=== PATIENT | male | born 1980 | race Caucasian/White ===

== ENCOUNTER 2018-12-02 03:28 | Observation (INO) ==
[2018-12-02] MEDS ORDERED: Morphine Inj 4 MG/ML Vial IV.PUSH PRN (05:50)
[2018-12-02] MEDS: Piperacil/Tazo 3.375 GM Premix 3.375 GM/50 ML PIGGYBACK IV.SIG SCH ×3 (09:15→20:43)
[2018-12-02] MEDS: Sod Chloride 0.9% Inj 1,000 ML IV.CONT SCH ×2 (09:16→18:24)
--- NOTE | 2018-12-02 10:21 | P.CONGS ---
[facility] Gen Surgery Consult Note Consult date: 12/02/18 Reason for consult: abdominal pain Narrative: CONSULTATION NOTE FOR SURGICAL ATTENDING, DR. RYAN SHELBY This is a 38 year old with a past medical history of hydronephrosis and kidney surgery who presented to the ED with complaints of abdominal pain. He reports that he has had vague abdominal pain for about 20 years. He reports in his early 20s, he had a gallbladder ultrasound which he reports only stated gallstones. He has not had any further workup. He reports that for years he would have mild abdominal pain after eating fatty foods but now has RUQ pain with any foods. A CT abdomen/pelvis was obtained which shows findings consistent with acute cholecystis. He does have a mildly elevated WBC. His liver enzymes are normal. A General Surgery consultation has been requested. Review of Systems All other systems reviewed negative except as stated in [facility] - History History Provided By: Patient - Medical History Medical History: Medical History (Last Reviewed 12/02/18 @ 18:49 by Ryan Shelby MD) Hydronephrosis Other specified diseases of appendix Patient denies medical problems - Surgical History Surgical History: Surgical History (Last Reviewed 12/02/18 @ 18:49 by Ryan Shelby MD) History of kidney surgery - Family History Family History: Family History (Last Reviewed 12/02/18 @ 14:07 by Sheyla Smith MD) Other Diabetes Heart problem Prostate CA - Social History I have reviewed the patient's Social History: Yes - Tobacco History Second Hand Smoke Exposure: No Smoking Status: Former smoker - Alcohol History How Often Do You Have a Drink Containing Alcohol: 2 to 4 times a month - Substance Use History Substance History: Active Abuse - Substance Use Type Marijuana Status: Active Route Used: Inhalation Reason for Use: Calm Down, Feels Good - Immunization History Tetanus Immunization Year if Known: 2015 Medications and Allergies Allergies Allergy/AdvReac Type Severity Reaction Status Date / Time meperidine [From Demerol] Allergy Anaphylaxis Verified 12/02/18 03:48 tramadol AdvReac Sedation Verified 12/02/18 03:48 Home Medications Medication Instructions Recorded Confirmed Type No Known Home Medications 12/02/18 12/02/18 History Active Medications: Active Medications Piperacillin/Tazobactam/Dextrose (Zosyn 3.375 Gm Premix) 3.375 gm in 50 mls @ 100 mls/hr IV.SIG Q6H [facility] Last Infusion: 12/02/18 09:45 Dose: Infused Sodium Chloride (Ns Inj) 1,000 mls @ 100 mls/hr IV.CONT .Q10H [facility] Last Admin: 12/02/18 09:16 Dose: 100 mls/hr Morphine Sulfate (Morphine Inj) 4 mg IV.PUSH Q4H PRN PRN Reason: pain 1 to 10 Ondansetron HCl (Zofran Inj) 4 mg IV.PUSH Q6H PRN PRN Reason: NAUSEA OR VOMITING Sodium Chloride (Ns Flush) 2 ml IV.FLUSH BID [facility] Last Admin: 12/02/18 09:12 Dose: 2 ml Sodium Chloride (Ns Flush) 2 ml IV.FLUSH PRN PRN PRN Reason: FLUSH AFTER USING IV ACCESS Exam Vital signs: Vital Signs 12/02/18 08:00 Temperature 98.4 F Pulse Rate 53 L Respiratory Rate 16 Blood Pressure 95/61 L Pulse Oximetry 99 Intake & Output 12/01/18 12/02/18 12/02/18 18:59 06:59 18:59 Intake Total 50 / 50 Balance 50 / 50 Intake: IV 50 / 50 Zosyn 3.375 GM Premix 3.375 gm 50 / 50 In 50 ml @ 100 mls/hr IV.SIG Q6H [facility] Rx#:[id number] Narrative: GENERAL: 38 year old male resting in bed in no acute distress. SKIN: Warm and dry. HEAD: Atraumatic. Normocephalic. EYES: Pupils equal and round. No scleral icterus. No injection or drainage. ENT: No nasal bleeding or discharge. Mucous membranes pink and moist. NECK: Trachea midline. CARDIOVASCULAR: Regular rate and rhythm. RESPIRATORY: No accessory muscle use. Clear to auscultation. Breath sounds equal bilaterally. GASTROINTESTINAL: Abdomen soft, flat non distended abdomen. Tender in RUQ with palpation. Large well healed RIGHT flank scar. MUSCULOSKELETAL: Extremities without clubbing, cyanosis, or edema. No obvious deformities. NEUROLOGICAL: Awake and alert. No obvious cranial nerve deficits. Motor grossly within normal limits. Five out of 5 muscle strength in the arms and legs. Normal speech. PSYCHIATRIC: Appropriate mood and affect; insight and judgment normal. Results - Imaging Imaging: CONCLUSION: 1. Findings consistent with acute cholecystitis 2. Left renal mass will need to be followed. Pre and postcontrast renal MRI suggested on an elective basis CT scan - abdomen: report reviewed, image reviewed CT scan - pelvis: report reviewed, image reviewed Assessment and Plan - Assessment (1) Left renal mass Code(s): N28.89 - Other specified disorders of kidney and ureter Status: Acute (2) Epigastric abdominal pain Code(s): R10.13 - Epigastric pain Status: Acute - Plan 38 year old male with RUQ abdominal pain; pain after eating fatty foods -Will get GI consultation-- no clear picture for acute cholecystitis with such a long history of pain May have gastritis causing significant symptoms -NPO -IVF -Will follow up after GI consultation -Thank you for this consult; We will continue to follow After GI evaluation and possible endoscopy plan outpatient cholecystectomy depending on endoscopy results Discussed Condition With: Dr. Heron Hogue - Attending Attestation CONSULTATION NOTE FOR SURGICAL ATTENDING, DR. RYAN SHELBY Patient seen at the bedside Patient does not have classic symptomatology consistent with acute cholecystitis as suggested on the CT report His symptomatology is been going on for many many years. Will get gastroenterology to evaluate His renal mass needs to be followed as an outpatient by his primary care physician I agree with above assessment and plan. The exam, history, and the medical decision-making described in the above note were completed with the assistance of the mid-level provider. I reviewed and agree with the findings presented. I attest that I had a [id number] encounter with the patient on the same day, and personally performed and documented my assessment and findings in the medical record. The following services were provided during this hospital visit: Chart data review, vital sign assessments/reviewing monitor data Review of consultations notes if present. Medication orders/review and/or management Ordering and/or reviewing lab tests Ordering and/or interpreting/reviewing x-rays and/or diagnostic studies Care of the patient and discussion of the patient with the care team Documentation time To help prompt me to consider important information that might be impacting today's encounter and assessment, Information from prior notes written by myself or my colleagues may have been "brought forward/copy and pasted" into today's note.
[2018-12-02] MEDS ORDERED: Bupivacaine/Epinephrine PF Inj 0.5% 30 ML Vial ONE (12:12)
[2018-12-02] MEDS ORDERED: Sodium Chlor 0.9% Inj 500 ML IV.SIG SCH (13:30)
[2018-12-02] MEDS ORDERED: Metoprolol Tartrate 25 MG Tablet PO ONE (13:30)
[2018-12-02] MEDS ORDERED: Chlorhexidine Gluconate 2% 1 Pack (2 Cloths) TOPICAL ONE (14:00)
--- NOTE | 2018-12-02 14:00 | P.CONGI ---
History of Present Illness Consult date: 12/02/18 Consult reason: Abdominal pain Increased pain after meals Chief complaint: Acute Cholecystitis History of Present Illness: Patient is a pleasant 38-year-old male with past medical history significant for hydronephrosis and right-sided kidney surgery. Patient denies any additional surgical history or medical problems. Patient presented to [facility] emergency room with complaints of epigastric abdominal pain. He reports that this pain is sometimes sharp in nature as well as dull in nature. He rates his pain at a 10 out of 10 at this time. Patient reports pain radiates from epigastrium to right upper quadrant. States pain has been intermittent over the last 20 years, mostly occurring after eating fatty foods with mayonnaise or cheese. Over the last year or 2, patient states the pain has become more frequent regardless of meal type. Patient denies any past history of having had an EGD or colonoscopy. Patient does endorse occasional heartburn for which he no longer takes antacids due to the ineffectiveness. Patient states most common trigger for symptoms tomato based products. Patient denies any difficulty swallowing, odynophagia or unintentional weight loss. He does endorse that discomfort is usually relieved by "belching". Patient denies use of tobacco products but does endorse marijuana use daily. States he drinks 4 beers/alcoholic drinks a week. Patient denies any present use of NSAIDs. States that he stopped taking naproxen 1-2 years ago for chronic lower back pain. Patient does endorse having daily bowel movements without diarrhea or constipation or any noted bleeding. CT abdomen and pelvis reveal left renal mass as well as findings suggestive of acute cholecystitis. Patient has been evaluated by the general surgical service and our service has been asked to evaluate patient further for abdominal pain. Review of Systems All other systems reviewed negative except as stated in [facility] - History History Provided By: Patient - Medical History Medical History: Medical History (Last Reviewed 12/02/18 @ 14:07 by Sheyla Smith MD) Hydronephrosis Other specified diseases of appendix Patient denies medical problems - Surgical History Surgical History: Surgical History (Last Reviewed 12/02/18 @ 14:07 by Sheyla Smith MD) History of kidney surgery - Family History Family History: Family History (Last Reviewed 12/02/18 @ 14:07 by Sheyla Smith MD) Other Diabetes Heart problem Prostate CA - Tobacco History Second Hand Smoke Exposure: No Smoking Status: Former smoker - Alcohol History How Often Do You Have a Drink Containing Alcohol: 2 to 4 times a month - Substance Use History Substance History: Active Abuse - Substance Use Type Marijuana Status: Active Route Used: Inhalation Reason for Use: Calm Down, Feels Good - Travel History Recent Travel in the [place] Within the Last 8 Weeks: No Recent Travel Out of the Country Within the Last 8 Weeks: No - Immunization History Tetanus Immunization Year if Known: 2015 Medications and Allergies Active Medications: Active Medications Chlorhexidine Gluconate (Chlorhexidine 2% Cloth) 3 pack [employer] Stop: 12/02/18 14:01 Last Admin: 12/02/18 13:12 Dose: Not Given Piperacillin/Tazobactam/Dextrose (Zosyn 3.375 Gm Premix) 3.375 gm in 50 mls @ 100 mls/hr IV.SIG Q6H [facility] Last Admin: 12/02/18 13:08 Dose: 100 mls/hr Sodium Chloride (Ns Inj) 1,000 mls @ 100 mls/hr IV.CONT .Q10H [facility] Last Admin: 12/02/18 09:16 Dose: 100 mls/hr Lactated Ringer's (Lr 1000 Ml Inj) 1,000 mls @ 30 mls/hr IV.SIG .Q24H [facility] Stop: 12/03/18 13:29 Last Admin: 12/02/18 13:11 Dose: Not Given Sodium Chloride (Ns Inj) 500 mls @ 30 mls/hr IV.SIG .Q10H [facility] Last Admin: 12/02/18 13:11 Dose: Not Given Morphine Sulfate (Morphine Inj) 4 mg IV.PUSH Q4H PRN PRN Reason: pain 1 to 10 Ondansetron HCl (Zofran Inj) 4 mg IV.PUSH Q6H PRN PRN Reason: NAUSEA OR VOMITING Povidone Iodine (Betadine 5% Antisepsis Kit) 1 applicatio EACH [employer] Stop: 12/02/18 14:01 Last Admin: 12/02/18 13:11 Dose: Not Given Sodium Chloride (Ns Flush) 2 ml IV.FLUSH BID [facility] Last Admin: 12/02/18 09:12 Dose: 2 ml Sodium Chloride (Ns Flush) 2 ml IV.FLUSH PRN PRN PRN Reason: FLUSH AFTER USING IV ACCESS Allergies Allergy/AdvReac Type Severity Reaction Status Date / Time meperidine [From Demerol] Allergy Anaphylaxis Verified 12/02/18 03:48 tramadol AdvReac Sedation Verified 12/02/18 03:48 Home Medications Medication Instructions Recorded Confirmed Type No Known Home Medications 12/02/18 12/02/18 History Exam Vital signs: Vital Signs 12/02/18 08:00 12/02/18 12:00 Temperature 98.4 F 98.3 F Pulse Rate 53 L 56 L Respiratory Rate 16 16 Blood Pressure 95/61 L 109/64 Pulse Oximetry 99 99 Intake & Output 12/01/18 12/02/18 12/02/18 18:59 06:59 18:59 Intake Total 50 / 50 Balance 50 / 50 Weight 58.967 kg Intake: IV 50 / 50 Zosyn 3.375 GM Premix 3.375 gm 50 / 50 In 50 ml @ 100 mls/hr IV.SIG Q6H [facility] Rx#:[id number] Other: Weight On Admission 58.967 kg - Constitutional no acute distress, thin, cooperative - Routine HEENT Exam Head: Present: normocephalic - Routine Respiratory Exam Present: CTA bilaterally. Absent: accessory muscle use - Routine Cardiovascular Exam Present: RRR - Routine Abdominal Exam Present: soft, normoactive bowel sounds. Absent: tenderness, distended, guarding, firm - Routine Extremities Exam Absent: edema - Routine Skin Exam Present: dry, warm - Routine Neurological Exam Present: alert, oriented X3, moving all extremities Assessment and Plan (1) Epigastric abdominal pain Status: Acute Code(s): R10.13 - Epigastric pain - Plan Patient is a pleasant 38-year-old male with past medical history significant for hydronephrosis and right-sided kidney surgery. Patient denies any additional surgical history or medical problems. Patient presented to [facility] emergency room with complaints of epigastric abdominal pain. He reports that this pain is sometimes sharp in nature as well as dull in nature. He rates his pain at a 10 out of 10 at this time. Patient reports pain radiates from epigastrium to right upper quadrant. States pain has been intermittent over the last 20 years, mostly occurring after eating fatty foods with mayonnaise or cheese. Over the last year or 2, patient states the pain has become more frequent regardless of meal type. Patient denies any past history of having had an EGD or colonoscopy. Patient does endorse occasional heartburn for which he no longer takes antacids due to the ineffectiveness. Patient states most common trigger for symptoms tomato based products. Patient denies any difficulty swallowing, odynophagia or unintentional weight loss. He does endorse that discomfort is usually relieved by "belching". Patient denies use of tobacco products but does endorse marijuana use daily. States he drinks 4 beers/alcoholic drinks a week. Patient denies any present use of NSAIDs. States that he stopped taking naproxen 1-2 years ago for chronic lower back pain. Patient does endorse having daily bowel movements without diarrhea or constipation or any noted bleeding. CT abdomen and pelvis reveal left renal mass as well as findings suggestive of acute cholecystitis. Patient has been evaluated by the general surgical service and our service has been asked to evaluate patient further for abdominal pain. Abdominal pain Epigastric pain Patient presents with complaint of epigastric pain radiates to right upper quadrant for "20 years". Patient rates pain at 10 out of 10 at this time and states pain is constant. Denies any history of having had EGD in the past. Denies use of NSAIDs. Endorses marijuana use daily as well as EtOH use. Patient endorses abdominal pain present regardless of male type. Reports nausea without emesis, denies fever or chills. -WBC 12.0 hemoglobin 14.1 hematocrit 41.5 total bilirubin 0.5 AST 67 ALT 46 alk phos 80 lipase 115 -12/02/2018 CT abdomen and pelvis reveal the following: Findings consistent with acute cholecystitis Left renal mass will need to be followed. Pre and postcontrast renal MRI suggested on an elective basis. Plan -Clear liquid diet -N.p.o. after midnight -Obtain consent for EGD -Antiemetics and analgesics as per attending -PPI -HIDA scan -Supportive care -Further recommendations to follow This patient has been seen by myself and Dr. Ceja and this note is written on his behalf - Attending Attestation Dr. Ceja
--- NOTE | 2018-12-02 14:09 | P.HPIM ---
History of Present Illness Primary Care Physician: No Primary Care Physician Chief Complaint: abdominal pain History of Present Illness: Supriya skinny 38-year-old male with past medical history significant for hydronephrosis and right-sided kidney surgery. Patient denies any additional surgical history or medical problems. Patient presented to [facility] emergency room with complaints of epigastric abdominal pain. He reports that this pain is sometimes sharp in nature as well as dull in nature. He rates his pain at a 10 out of 10 at this time. Patient reports pain radiates from epigastrium to right upper quadrant. States pain has been intermittent over the last 20 years, mostly occurring after eating fatty foods with mayonnaise or cheese. Over the last year or 2, patient states the pain has become more frequent regardless of meal type. Patient denies any past history of having had an EGD or colonoscopy. Patient does endorse occasional heartburn for which he no longer takes antacids due to the ineffectiveness. Patient states most common trigger for symptoms tomato based products. Patient denies any difficulty swallowing, odynophagia or unintentional weight loss. He does endorse that discomfort is usually relieved by "belching". Patient denies use of tobacco products but does endorse marijuana use daily. States he drinks 4 beers/alcoholic drinks a week. Patient denies any present use of NSAIDs. States that he stopped taking naproxen 1-2 years ago for chronic lower back pain. Patient does endorse having daily bowel movements without diarrhea or constipation or any noted bleeding. CT abdomen and pelvis reveal left renal mass as well as findings suggestive of acute cholecystitis. Patient has been evaluated by the general surgical service who recommends GI eval .The patient is seen by GI service and recommends EGD in the morning. Patient is feeling better at this time. No fever or chills. Still with some nausea no vomiting. Mild abdominal pain. No urinary complaints. Diagnosis (1) Epigastric abdominal pain: Review of Systems Review of Systems: all other systems reviewed are negative [facility] Medical History Medical History Hydronephrosis (Acute) Other specified diseases of appendix (Acute) Patient denies medical problems (Acute) Surgical History Surgical History History of kidney surgery (Acute) Social History Social History Substance History: Active Abuse Second Hand Smoke Exposure: No Smoking Status: Former smoker How Often Do You Have a Drink Containing Alcohol: 2 to 4 times a month Recent Travel in [facility] within the Last 8 Weeks: No Recent Out of Country Travel within the Last 8 Weeks: No Substance Abuse Detail Marijuana: Substance Use Status: Active Route Used Substance Abuse: Inhalation Reason for Use: Calm Down and Feels Good Immunization History Tetanus Immunization Year if Known: 2015 Medications and Allergies Allergies Allergy/AdvReac Type Severity Reaction Status Date / Time meperidine [From Demerol] Allergy Anaphylaxis Verified 12/02/18 03:48 tramadol AdvReac Sedation Verified 12/02/18 03:48 Home Medications Medication Instructions Recorded Confirmed Type No Known Home Medications 12/02/18 12/02/18 History Active Medications: Active Medications Piperacillin/Tazobactam/Dextrose (Zosyn 3.375 Gm Premix) 3.375 gm in 50 mls @ 100 mls/hr IV.SIG Q6H [facility] Last Admin: 12/02/18 13:08 Dose: 100 mls/hr Sodium Chloride (Ns Inj) 1,000 mls @ 100 mls/hr IV.CONT .Q10H [facility] Last Admin: 12/02/18 09:16 Dose: 100 mls/hr Morphine Sulfate (Morphine Inj) 4 mg IV.PUSH Q4H PRN PRN Reason: pain 1 to 10 Ondansetron HCl (Zofran Inj) 4 mg IV.PUSH Q6H PRN PRN Reason: NAUSEA OR VOMITING Pantoprazole Sodium (Protonix Inj) 40 mg IV.PUSH Q12H [facility] Sodium Chloride (Ns Flush) 2 ml IV.FLUSH BID [facility] Last Admin: 12/02/18 09:12 Dose: 2 ml Sodium Chloride (Ns Flush) 2 ml IV.FLUSH PRN PRN PRN Reason: FLUSH AFTER USING IV ACCESS Physical Exam Vital signs: Vital Signs 12/02/18 08:00 12/02/18 12:00 Temperature 98.4 F 98.3 F Pulse Rate 53 L 56 L Respiratory Rate 16 16 Blood Pressure 95/61 L 109/64 Pulse Oximetry 99 99 Intake & Output 12/01/18 12/02/18 12/02/18 18:59 06:59 18:59 Intake Total 50 / 50 Balance 50 / 50 Weight 58.967 kg Intake: IV 50 / 50 Zosyn 3.375 GM Premix 3.375 gm 50 / 50 In 50 ml @ 100 mls/hr IV.SIG Q6H [facility] Rx#:[id number] Other: Weight On Admission 58.967 kg Narrative: GENERAL: 38 yo male, skinny appears in nad. SKIN: Warm and dry. HEAD: Atraumatic. Normocephalic. EYES: Pupils equal and round. No scleral icterus. No injection or drainage. ENT: No nasal bleeding or discharge. Mucous membranes pink and moist. NECK: Trachea midline. No JVD. CARDIOVASCULAR: Regular rate and rhythm. RESPIRATORY: No accessory muscle use. Clear to auscultation. Breath sounds equal bilaterally. GASTROINTESTINAL: Abdomen soft, mild tenderness epigastric area, nondistended. MUSCULOSKELETAL: Extremities without clubbing, cyanosis, or edema. No obvious deformities. NEUROLOGICAL: Awake and alert. No obvious cranial nerve deficits. Motor grossly within normal limits. Five out of 5 muscle strength in the arms and legs. Normal speech. PSYCHIATRIC: Appropriate mood and affect; insight and judgment normal. Caprini VTE Risk Assessment Caprini VTE Risk Assessment: Moderate/High Risk (score >= 2) Caprini Risk Assessment Model: Point Value = 1 Point Value = 2 Point Value = 3 Point Value = 5 Age 41-60 Minor surgery BMI > 25 kg/m2 Swollen legs Varicose veins or History of unexplained or recurrent spontaneous Oral contraceptives or hormone replacement Sepsis (< 1 month) Serious lung disease, including pneumonia (< 1 month) Abnormal pulmonary function Acute myocardial infarction Congestive heart failure (< 1 month) History of inflammatory bowel disease Medical patient at bed rest Age 61-74 Arthroscopic surgery Major open surgery (> 45 min) Laparoscopic surgery (> 45 min) Malignancy Confined to bed (> 72 hours) Immobilizing plaster cast Central venous access Age >= 75 History of VTE Family history of VTE Factor V Leiden Prothrombin [id number] Lupus anticoagulant Anticardiolipin antibodies Elevated serum homocysteine Heparin-induced thrombocytopenia Other congenital or acquired thrombophilia Stroke (< 1 month) Elective arthroplasty Hip, pelvis, or leg fracture Acute spinal cord injury (< 1 month) Prophylaxis Regimen: Total Risk Factor Score Risk Level Prophylaxis Regimen 0-1 Low Early ambulation 2 Moderate Order ONE of the following: *Sequential Compression Device (SCD) *Heparin 5000 units SQ BID 3-4 Higher Order ONE of the following medications: *Heparin 5000 units SQ TID *Enoxaparin/Lovenox 40 mg SQ daily (WT < 150 kg, CrCl > 30 mL/min) *Enoxaparin/Lovenox 30 mg SQ daily (WT < 150 kg, CrCl > 10-29 mL/min) *Enoxaparin/Lovenox 30 mg SQ BID (WT < 150 kg, CrCl > 30 mL/min) AND/OR *Sequential Compression Device (SCD) 5 or more Highest Order ONE of the following medications: *Heparin 5000 units SQ TID (Preferred with Epidurals) *Enoxaparin/Lovenox 40 mg SQ daily (WT < 150 kg, CrCl > 30 mL/min) *Enoxaparin/Lovenox 30 mg SQ daily (WT < 150 kg, CrCl > 10-29 mL/min) *Enoxaparin/Lovenox 30 mg SQ BID (WT < 150 kg, CrCl > 30 mL/min) AND *Sequential Compression Device (SCD) Assessment and Plan (1) Epigastric abdominal pain: Code(s): R10.13 - Epigastric pain Status: Acute Plan Abdominal pain, epigastric radiating to RUQ Epigastric pain Hydronephrosis/ right sided kidney surgery. 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 Pre and postcontrast renal MRI suggested on an elective basis. -Clear liquid diet -N.p.o. after midnight -Plan for EGD -Antiemetics as need - Pain meds per pain scale -PPI Restart home meds as appropriate DVT ppx scd teds Discussed Condition With: patient, nurse H&P: Quality VTE Deep Vein Thrombosis/Pulmonary Embolism Present on Admission: No
[2018-12-02] MEDS: Pantoprazole Inj 40 MG Vial IV.PUSH SCH (15:27)
[2018-12-02] MEDS ORDERED: Simethicone 80 MG Chew Tablet PO PRN (17:00)
[2018-12-02] MEDS ORDERED: Sincalide Inj 1.2 MCG in Sodium Chlor 0.9% Inj 50 ML IV.SIG ONE (17:46)
[2018-12-03] MEDS: Pantoprazole Inj 40 MG Vial IV.PUSH SCH ×2 (01:28→14:58)
[2018-12-03] MEDS: Piperacil/Tazo 3.375 GM Premix 3.375 GM/50 ML PIGGYBACK IV.SIG SCH ×4 (03:53→20:02)
[2018-12-03] MEDS: Sod Chloride 0.9% Inj 1,000 ML IV.CONT SCH ×2 (03:54→17:07)
[2018-12-03 07:38] LABS: Baso % (Auto) 0.6 % (0.0-2.0); Eos # (Auto) 0.2 th/mm3 (0.0-0.4); Eos % (Auto) 3.2 % (0.0-4.0); Hematocrit 38.2 % (39.0-51.0); Lymph # (Auto) 1.9 th/mm3 (1.0-4.8); Lymph % (Auto) 30.6 % (9.0-44.0); Mean Corpuscular HGB Conc 34.1 % (32.0-36.0); Mean Corpuscular Hemoglobin 33.5 pg (27.0-34.0); Mean Corpuscular Volume 98.3 fL (80.0-100.0); Mean Platelet Volume 9.7 fL (7.0-11.0); Mono # (Auto) 0.6 th/mm3 (0.0-0.9); Mono % (Auto) 10.1 % (0.0-8.0); Neut # (Auto) 3.4 th/mm3 (1.8-7.7); Neut % (Auto) 55.5 % (16.0-70.0); Platelet Count 168 th/mm3 (150-450); Red Blood Count 3.89 mil/mm3 (4.50-5.90); Red Cell Distribution Width 13.8 % (11.6-17.2); White Blood Count 6.2 th/mm3 (4.0-11.0)
[2018-12-03 08:01] LABS: Calcium 8.3 mg/dL (8.5-10.1); Carbon Dioxide 25.9 meq/L (21.0-32.0); Potassium 3.8 meq/L (3.5-5.1)
--- NOTE | 2018-12-03 12:36 | NM ---
EXAM DATE: 12/03/2018 12:32 PM EST AGE/SEX: 38 years / Male INDICATIONS: Right upper quadrant pain. CLINICAL DATA: This is the patient's initial encounter. Patient reports that signs and symptoms have been present for 1 day and indicates a pain score of 10/10. MEDICAL/SURGICAL HISTORY: Hypertension. Hydronephrosis. . Right kidney surgery. COMPARISON: [facility], CT ABDOMEN & PELVIS W CONTRAST, 12/02/2018. . DOSE: 4.1 mCi Tc-99m mebrofenin i.v. Medication: 1.2 mcg Cholecystokinin IV No symptomatic response Cholecystokinin was administered by slow infusion over 8 minutes beginning at 60 minutes. minutes. TECHNIQUE: Following the intravenous administration of radiotracer, dynamic sequential images were pe rformed with continuous acquisition. Time-activity curves were generated. FINDINGS: Hepatic Kinetics: There is prompt uptake of radiotracer in the liver. No focal defects are seen. Ther e is normal rate of washout from the hepatic parenchyma. Biliary Clearance: Activity is first seen in the extrahepatic biliary system at 8 minutes. There is normal excretion into the small bowel. Gallbladder: Activity is first seen in the gallbladder at 17 minutes. Post-CCK: After CCK administration, there is emptying of the gallbladder with a 50% ejection fraction . Common bile duct kinetics are normal and there is no evidence of biliary obstruction. No symptomat ic response after cholecystokinin infusion. Biliary-Enteric Reflux: Minimal biliary enteric reflux occurs at 37 minutes. CONCLUSION: 1. Prompt visualization of gallbladder and normal gallbladder ejection fraction. 2. Minimal biliary enteric reflux which occurs prior to CCK aspiration. Electronically signed by: Duglas Willis MD Board Certified Radiologist 12/03/2018 12:35 PM EST
[2018-12-03] MEDS ORDERED: Lidocaine PF 1% Inj 5 ML Syringe INFILTRATN ONE (12:46)
--- NOTE | 2018-12-03 13:14 | GIPROC ---
[facility] [address] [facility]. [facility], [id number] EGD PROCEDURE REPORT EXAM DATE: 12/03/2018 PATIENT NAME: Logan Hogue MR #: [id number] BIRTHDATE: 1980 ATTENDING: Emmett Ceja MD ORDER #: [id number] RETORT LOADER: Lola Leon and Lisa Ponce STATUS: inpatient INDICATIONS: The patient is a 38 yr old male here for an EGD due to epigastric abdominal pain PROCEDURE PERFORMED: EGD w/ biopsy MEDICATIONS: Per Anesthesia and None. TOPICAL ANESTHETIC: none CONSENT: The patient understands the risks and benefits of the procedure and understands that these risks include, but are not limited to: sedation, allergic reaction, infection, perforation and/or bleeding. Alternative means of evaluation and treatment include, among others: physical exam, x-rays, and/or surgical intervention. The patient elects to proceed with this endoscopic procedure. medical equipment was checked for proper function. Hand hygiene and appropriate measures for infection prevention was taken. After the risks, benefits and alternatives of the procedure were thoroughly explained, Informed consent was verified, confirmed and timeout was successfully executed by the treatment team. The patient was anesthetized with topical anesthesia and the [employer] [id number] endoscope was introduced through the mouth and advanced to the second portion of the duodenum. Retroflexed views revealed no abnormalities The gastroscope was then slowly withdrawn and removed. ESOPHAGUS: There was LA Class A esophagitis noted. STOMACH: There was mild antral gastropathy noted. Cold forcep biopsies were taken at the antrum and angularis. DUODENUM: The duodenal mucosa appeared normal in the entire duodenum. Cold forceps biopsies were taken in the bulb and second portion. ADVERSE EVENTS: There were no complications. IMPRESSIONS: 1. There was LA Class A esophagitis noted 2. There was mild antral gastropathy noted [T2] 3. Normal duodenal mucosa in the entire duodenum 4. Retroflexed views revealed no abnormalities RECOMMENDATIONS: Await biopsy results. Biopsy results will not be ready for 7-10 days. If you don't hear from us in two weeks, call our office for biopsy results. PATIENT CONDITION: stable DISPOSITION: Inpatient REPEAT EXAM: Return as needed for EGD Emmett Ceja MD eSigned: Emmett Ceja MD 12/03/2018 1:14 PM cc: PATIENT NAME: Logan Hogue MR#: [id number]
--- NOTE | 2018-12-03 15:19 | P.PNIM ---
Subjective Interval history: The patient is in bed he is still with nausea no vomiting. Still with abdominal pain however is better controlled. Not able to keep any fluids down. No fever or chills. No diarrhea. Went for EGD. The patient was seen after EGD. Says he has more appetite and like to try food. Her GI's restart clear liquid diet. Physical Exam Vital signs: Vital Signs 12/02/18 18:23 12/02/18 20:00 12/02/18 23:10 Temperature 97.9 F 98 F 98.3 F Pulse Rate 51 L 55 L 52 L Respiratory Rate 16 12 16 Blood Pressure 100/59 L 89/54 L 106/52 L Pulse Oximetry 99 98 98 12/03/18 04:00 12/03/18 07:21 12/03/18 13:25 Temperature 98.2 F 96.7 F L 97.6 F Pulse Rate 57 L 61 60 Respiratory Rate 16 18 20 Blood Pressure 104/57 L 103/59 L 92/51 L Pulse Oximetry 98 99 97 Intake & Output 12/02/18 12/03/18 12/03/18 18:59 06:59 18:59 Intake Total 932 / 932 1100 / 1100 200 / 200 Balance 932 / 932 1100 / 1100 200 / 200 Weight 58.967 kg Intake: IV 932 / 932 1100 / 1100 100 / 100 NS Inj 1,000 ML @ 100 mls/hr IV 832 / 832 1000 / 1000 .CONT .Q10H [facility] Rx#:[id number] Zosyn 3.375 GM Premix 3.375 gm 100 / 100 100 / 100 50 / 50 In 50 ml @ 100 mls/hr IV.SIG Q6H [facility] Rx#:[id number] Anesthesia Amount 100 / 100 Other: # Voids 1 Date of Last Bowel Movement 12/01/18 # Bowel Movements 1 Weight On Admission 58.967 kg Narrative: GENERAL: 38 yo male, skinny appears in nad. CARDIOVASCULAR: Regular rate and rhythm. RESPIRATORY: No accessory muscle use. Clear to auscultation. Breath sounds equal bilaterally. GASTROINTESTINAL: Abdomen soft, mild tenderness epigastric area, nondistended. MUSCULOSKELETAL: Extremities without clubbing, cyanosis, or edema. No obvious deformities. NEUROLOGICAL: Awake and alert. No obvious cranial nerve deficits. Motor grossly within normal limits. Five out of 5 muscle strength in the arms and legs. Normal speech. PSYCHIATRIC: Appropriate mood and affect; insight and judgment normal. Results Labs CBC & Chem 7: 12/03/18 05:54 12/03/18 05:54 Imaging Imaging: Impressions Bile Acid Absorption NM 12/03/18 00:00 CONCLUSION: 1. Prompt visualization of gallbladder and normal gallbladder ejection fraction. 2. Minimal biliary enteric reflux which occurs prior to CCK aspiration. Assessment and Plan (1) Left renal mass: Code(s): N28.89 - Other specified disorders of kidney and ureter Status: Acute (2) Epigastric abdominal pain: Code(s): R10.13 - Epigastric pain Status: Acute Plan Abdominal pain, epigastric radiating to RUQ Epigastric pain Hydronephrosis/ right sided kidney surgery. 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 Gen surg consulted poss surgery early next week -CT abdomen and pelvis reviewed reveal the following: Findings consistent with acute cholecystitis Left renal mass will need to be followed. Pre and postcontrast renal MRI suggested on an elective basis. -Clear liquid diet -S/p EGD: LA class A Esophagitis, mild antral gastropathy. -Antiemetics as need - Pain meds per pain scale -PPI Restart home meds as appropriate DVT ppx scd teds DC plan when improved and cleared by consultants GI and gen surg. Had EGD and patient also with acute chepe poss surgery Discussed with the patient, nurse. Progress Note: Quality VTE Deep Vein Thrombosis/Pulmonary Embolism Present on Admission: No
--- NOTE | 2018-12-03 17:21 | P.CONURO ---
History of Present Illness Service: Med Consult date: 12/03/18 Requesting Physician: Sheyla Smith Reason for Consult: Kidney stone Primary Care Provider: Nathalie Primary Care Physician Chief Complaint: abdominal pain History of Present Illness: 38 Y/O white thin male admitted because of epigastric pain found on CT scan to have an asymptomatic 12 mm RIGHT kidney stone in lower pole. Stone was unknown to patient. CT also shows a cyst on the LEFT kidney. 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 He had Upper GI procedure earlier today. [facility] - History History Provided By: Patient - Medical History Medical History: Medical History (Last Reviewed 12/02/18 @ 18:49 by Douglas Shelby MD) Hydronephrosis Other specified diseases of appendix Patient denies medical problems - Surgical History Surgical History: Surgical History (Last Reviewed 12/02/18 @ 18:49 by Douglas Shelby MD) History of kidney surgery - Family History Family History: Family History (Last Reviewed 12/02/18 @ 14:07 by Sheyla Smith MD) Other Diabetes Heart problem Prostate CA - Tobacco History Second Hand Smoke Exposure: No Smoking Status: Former smoker - Alcohol History How Often Do You Have a Drink Containing Alcohol: 2 to 4 times a month - Substance Use History Substance History: Active Abuse - Substance Use Type Marijuana Status: Active Route Used: Inhalation Reason for Use: Calm Down, Feels Good - Travel History Recent Travel in the [place] Within the Last 8 Weeks: No Recent Travel Out of the Country Within the Last 8 Weeks: No - Immunization History Tetanus Immunization Year if Known: 2015 Medications and Allergies Active Medications: Active Medications Piperacillin/Tazobactam/Dextrose (Zosyn 3.375 Gm Premix) 3.375 gm in 50 mls @ 100 mls/hr IV.SIG Q6H [facility] Last Infusion: 12/03/18 15:28 Dose: Infused Sodium Chloride (Ns Inj) 1,000 mls @ 100 mls/hr IV.CONT .Q10H [facility] Last Infusion: 12/03/18 14:03 Dose: 100 mls/hr Morphine Sulfate (Morphine Inj) 4 mg IV.PUSH Q4H PRN PRN Reason: pain 1 to 10 Ondansetron HCl (Zofran Inj) 4 mg IV.PUSH Q6H PRN PRN Reason: NAUSEA OR VOMITING Pantoprazole Sodium (Protonix Inj) 40 mg IV.PUSH Q12H [facility] Last Admin: 12/03/18 14:58 Dose: 40 mg Simethicone (Mylicon Chew) 80 mg PO Q8H PRN PRN Reason: GAS RETENTION Sodium Chloride (Ns Flush) 2 ml IV.FLUSH BID [facility] Last Admin: 12/03/18 08:09 Dose: Not Given Sodium Chloride (Ns Flush) 2 ml IV.FLUSH PRN PRN PRN Reason: FLUSH AFTER USING IV ACCESS Allergies Allergy/AdvReac Type Severity Reaction Status Date / Time meperidine [From Demerol] Allergy Anaphylaxis Verified 12/02/18 03:48 tramadol AdvReac Sedation Verified 12/02/18 03:48 Home Medications Medication Instructions Recorded Confirmed Type No Known Home Medications 12/02/18 12/02/18 History Physical Exam Vital Signs - 24 hr 12/02/18 18:23 12/02/18 20:00 12/02/18 23:10 Temperature 97.9 F 98 F 98.3 F Pulse Rate 51 L 55 L 52 L Respiratory Rate 16 12 16 Blood Pressure 100/59 L 89/54 L 106/52 L Pulse Oximetry 99 98 98 12/03/18 04:00 12/03/18 07:21 12/03/18 13:25 Temperature 98.2 F 96.7 F L 97.6 F Pulse Rate 57 L 61 60 Respiratory Rate 16 18 20 Blood Pressure 104/57 L 103/59 L 92/51 L Pulse Oximetry 98 99 97 12/03/18 16:17 Temperature 96.5 F L Pulse Rate 61 Respiratory Rate 18 Blood Pressure 109/63 Pulse Oximetry 100 Physical Exam: GENERAL: This is a well-nourished, well-developed patient, in no apparent distress. SKIN: No rashes, ecchymoses or lesions. Cool and dry. HEAD: Atraumatic. Normocephalic. No temporal or scalp tenderness. EYES: Pupils equal round and reactive. Extraocular motions intact. No scleral icterus. No injection or drainage. ENT: Nose without bleeding, purulent drainage or septal hematoma. Throat without erythema, tonsillar hypertrophy or exudate. Uvula midline. Airway patent. NECK: Trachea midline. No JVD or lymphadenopathy. Supple, nontender, no meningeal signs. CARDIOVASCULAR: RESPIRATORY: GASTROINTESTINAL: Abdomen soft, non-tender, nondistended. No hepato-splenomegaly , or palpable masses. No guarding. GENITOURINARY: RIGHT flank surgical scar. MUSCULOSKELETAL: Extremities without clubbing, cyanosis, or edema. No joint tenderness, effusion, or edema noted. NEUROLOGICAL: Awake and alert. Cranial nerves II through XII intact. Motor and sensory grossly within normal limits. Normal speech. Lab results reviewed: Yes Laboratory Results - last 24 hr 12/03/18 12/03/18 05:54 05:54 WBC 6.2 RBC 3.89 L Hgb 13.0 Hct 38.2 L MCV 98.3 MCH 33.5 MCHC 34.1 RDW 13.8 Plt Count 168 MPV 9.7 Neut % (Auto) 55.5 Lymph % (Auto) 30.6 [place] % (Auto) 10.1 H Eos % (Auto) 3.2 Baso % (Auto) 0.6 Neut # (Auto) 3.4 Lymph # (Auto) 1.9 [place] # (Auto) 0.6 Eos # (Auto) 0.2 Baso # (Auto) 0.0 WBC Differential . Differential Comment Auto diff final Sodium 144 Potassium 3.8 Chloride 111 H Carbon Dioxide 25.9 Anion Gap 7 BUN 11 Creatinine 0.98 Estimated GFR 85 L Random Glucose 69 L Calcium 8.3 L D Result Diagrams: 12/03/18 05:54 12/03/18 05:54 Personally reviewed images: Yes Imaging: ITS Impressions Bile Acid Absorption NM 12/03/18 00:00 CONCLUSION: 1. Prompt visualization of gallbladder and normal gallbladder ejection fraction. 2. Minimal biliary enteric reflux which occurs prior to CCK aspiration. Assessment and Plan - Assessment (1) Renal calculus, right Code(s): N20.0 - Calculus of kidney Status: Chronic (2) Renal cyst, left Code(s): N28.1 - Cyst of kidney, acquired Status: Chronic - Plan Right kidney stone is asymptomatic, no colic, no obstruction, lying in lower pole. Left kidney cyst looks benign. REC: F/U with a Urologist of his choosing at a later date. No Urological procedure indicated at present. Discussed Condition With: Patient, .
--- NOTE | 2018-12-03 20:10 | P.PNGS ---
Subjective Interval history: DAILY PROGRESS NOTE FOR SURGICAL ATTENDING, DR. RYAN JOHNSON Patient had EGD showing esophagitis Physical Exam Vital signs: Vital Signs 12/02/18 23:10 12/03/18 04:00 12/03/18 07:21 Temperature 98.3 F 98.2 F 96.7 F L Pulse Rate 52 L 57 L 61 Respiratory Rate 16 16 18 Blood Pressure 106/52 L 104/57 L 103/59 L Pulse Oximetry 98 98 99 12/03/18 13:25 12/03/18 16:17 12/03/18 19:55 Temperature 97.6 F 96.5 F L 98.2 F Pulse Rate 60 61 64 Respiratory Rate 20 18 18 Blood Pressure 92/51 L 109/63 125/57 L Pulse Oximetry 97 100 97 Intake & Output 12/03/18 12/03/18 12/04/18 06:59 18:59 06:59 Intake Total 1100 / 1100 1050 / 1050 Balance 1100 / 1100 1050 / 1050 Intake: IV 1100 / 1100 950 / 950 NS Inj 1,000 ML @ 100 mls/hr IV 1000 / 1000 800 / 800 .CONT .Q10H [facility] Rx#:[id number] Zosyn 3.375 GM Premix 3.375 gm 100 / 100 100 / 100 In 50 ml @ 100 mls/hr IV.SIG Q6H [facility] Rx#:[id number] Anesthesia Amount 100 / 100 Other: # Voids 1 Date of Last Bowel Movement 12/01/18 # Bowel Movements 1 Narrative: GENERAL: 38 year old male resting in bed in no acute distress. SKIN: Warm and dry. HEAD: Atraumatic. Normocephalic. EYES: Pupils equal and round. No scleral icterus. No injection or drainage. ENT: No nasal bleeding or discharge. Mucous membranes pink and moist. NECK: Trachea midline. CARDIOVASCULAR: Regular rate and rhythm. RESPIRATORY: No accessory muscle use. Clear to auscultation. Breath sounds equal bilaterally. GASTROINTESTINAL: Abdomen soft, flat non distended abdomen. Tender in RUQ with palpation, large well healed RIGHT flank scar. MUSCULOSKELETAL: Extremities without clubbing, cyanosis, or edema. No obvious deformities. NEUROLOGICAL: Awake and alert. No obvious cranial nerve deficits. Motor grossly within normal limits. Five out of 5 muscle strength in the arms and legs. Normal speech. PSYCHIATRIC: Appropriate mood and affect; insight and judgment normal. Results - Labs 12/03/18 05:54 12/03/18 05:54 Laboratory Results - last 24 hr 12/03/18 12/03/18 05:54 05:54 WBC 6.2 RBC 3.89 L Hgb 13.0 Hct 38.2 L MCV 98.3 MCH 33.5 MCHC 34.1 RDW 13.8 Plt Count 168 MPV 9.7 Neut % (Auto) 55.5 Lymph % (Auto) 30.6 [place] % (Auto) 10.1 H Eos % (Auto) 3.2 Baso % (Auto) 0.6 Neut # (Auto) 3.4 Lymph # (Auto) 1.9 [place] # (Auto) 0.6 Eos # (Auto) 0.2 Baso # (Auto) 0.0 WBC Differential . Differential Comment Auto diff final Sodium 144 Potassium 3.8 Chloride 111 H Carbon Dioxide 25.9 Anion Gap 7 BUN 11 Creatinine 0.98 Estimated GFR 85 L Random Glucose 69 L Calcium 8.3 L D - Imaging Imaging: ITS Impressions Bile Acid Absorption NM 12/03/18 00:00 CONCLUSION: 1. Prompt visualization of gallbladder and normal gallbladder ejection fraction. 2. Minimal biliary enteric reflux which occurs prior to CCK aspiration. ITS Impressions Bile Acid Absorption NM 12/03/18 00:00 CONCLUSION: 1. Prompt visualization of gallbladder and normal gallbladder ejection fraction. 2. Minimal biliary enteric reflux which occurs prior to CCK aspiration. Additional studies: CONCLUSION: 1. Findings consistent with acute cholecystitis 2. Left renal mass will need to be followed. Pre and postcontrast renal MRI suggested on an elective basis Assessment and Plan - Assessment (1) Left renal mass Code(s): N28.89 - Other specified disorders of kidney and ureter Status: Acute (2) Esophagitis determined by endoscopy Code(s): K20.9 - Esophagitis, unspecified Status: Acute (3) Epigastric abdominal pain Code(s): R10.13 - Epigastric pain Status: Acute - Plan 38 year old male with abdominal pain; -Patient had EGD showing esophagitis. He had a HIDA scan which essentially was normal I suspect his pain is related to esophagitis At this time increase diet as tolerated Treat him for his esophagitis Follow in the clinic as an outpatient basis Okay to discharge home Reevaluate in the future about his asymptomatic gallstones - Attending Attestation NOTE FOR SURGICAL ATTENDING, DR. RYAN JOHNSON I attest that I had a [id number] encounter with the patient on the same day, and personally performed and documented my assessment and findings in the medical record. The following services were provided during this hospital visit: Chart data review, vital sign assessments/reviewing monitor data Review of consultations notes if present. Medication orders/review and/or management Ordering and/or reviewing lab tests Ordering and/or interpreting/reviewing x-rays and/or diagnostic studies Care of the patient and discussion of the patient with the care team Documentation time To help prompt me to consider important information that might be impacting today's encounter and assessment, Information from prior notes written by myself or my colleagues may have been "brought forward/copy and pasted" into today's note.
[2018-12-04] MEDS: Sod Chloride 0.9% Inj 1,000 ML IV.CONT SCH ×2 (03:14→08:18)
[2018-12-04] MEDS: Piperacil/Tazo 3.375 GM Premix 3.375 GM/50 ML PIGGYBACK IV.SIG SCH ×2 (03:20→08:17)
[2018-12-04] MEDS: Pantoprazole Inj 40 MG Vial IV.PUSH SCH (03:20)
[2018-12-04 07:58] VITALS: RESP 18
[2018-12-04 11:20] VITALS: BP 109/59; PULSE 55; TEMP 98.4; O2SAT 99
--- NOTE | 2018-12-04 13:03 | P.DS ---
DS: Providers Date of admission: 12/02/18 07:45 Primary care physician: No Primary Care Physician Consults: 12/02/18 05:53 Consult to General Surgery Routine Consulting Provider: Douglas Shelby Reason for Consultation: acute cholecystitis Notified:: Service Spoke with:: Eri Date Notified:: 12/02/18 Time Notified:: 07:50 Ordering Provider: LILIYA 12/02/18 12:57 Consult to Gastroenterology Routine Consulting Provider: Emmett Ceja V Reason for Consultation: vague abdominal pain symtoms for 20 years; pain after eating Notified:: Office Spoke with:: Triny Date Notified:: 12/02/18 Time Notified:: 13:05 Ordering Provider: KAMERON 12/03/18 15:52 Consult to Urology Routine Consulting Provider: Sheldon Araiza Reason for Consultation: renal stone 12 mm and mass Notified:: Service Spoke with:: adela Date Notified:: 12/03/18 Time Notified:: 15:57 Ordering Provider: KEREN Brief History from admission: Supriya skinny 38-year-old male with past medical history significant for hydronephrosis and right-sided kidney surgery. Patient denies any additional surgical history or medical problems. Patient presented to [facility] emergency room with complaints of epigastric abdominal pain. He reports that this pain is sometimes sharp in nature as well as dull in nature. He rates his pain at a 10 out of 10 at this time. Patient reports pain radiates from epigastrium to right upper quadrant. States pain has been intermittent over the last 20 years, mostly occurring after eating fatty foods with mayonnaise or cheese. Over the last year or 2, patient states the pain has become more frequent regardless of meal type. Patient denies any past history of having had an EGD or colonoscopy. Patient does endorse occasional heartburn for which he no longer takes antacids due to the ineffectiveness. Patient states most common trigger for symptoms tomato based products. Patient denies any difficulty swallowing, odynophagia or unintentional weight loss. He does endorse that discomfort is usually relieved by "belching". Patient denies use of tobacco products but does endorse marijuana use daily. States he drinks 4 beers/alcoholic drinks a week. Patient denies any present use of NSAIDs. States that he stopped taking naproxen 1-2 years ago for chronic lower back pain. Patient does endorse having daily bowel movements without diarrhea or constipation or any noted bleeding. CT abdomen and pelvis reveal left renal mass as well as findings suggestive of acute cholecystitis. Patient has been evaluated by the general surgical service who recommends GI eval .The patient is seen by GI service and recommends EGD in the morning. Patient is feeling better at this time. No fever or chills. Still with some nausea no vomiting. Mild abdominal pain. No urinary complaints. DS: Diagnosis Discharge Diagnosis (1) Left renal mass: Status: Acute (2) Esophagitis determined by endoscopy: Status: Acute (3) Epigastric abdominal pain: Status: Acute DS: Summary Abdominal pain, epigastric radiating to RUQ Epigastric pain Hydronephrosis/ right sided kidney surgery. 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 Gen surg consulted, recommends GI eval. Patient is evaluated by GI s/p EGD showed gastritis, continue PPI Renal stone and renal mass: Also noted on CT A/P renal stone and mass, urology consulted, discussed with Dr Avila recommends follow up asOP with his urology Dr CT abdomen and pelvis reviewed reveal the following: Findings consistent with acute cholecystitis. Left renal mass will need to be followed. Pre and postcontrast renal MRI suggested on an elective basis. S/p EGD: LA class A Esophagitis, mild antral gastropathy. Antiemetics as need. Pain meds per pain scale . Continue PPI Imprpved tolerates regular diet. DC home in stable condition to follow up as OP with PCP and consultants Time Spent with Patient Total time spent providing and/or coordinating discharge services: > 30 min Quality: VTE Deep Vein Thrombosis/Pulmonary Embolism Present on Admission: No Exam Narrative Exam Narrative: GENERAL: 38 yo male, skinny appears in nad. CARDIOVASCULAR: Regular rate and rhythm. RESPIRATORY: No accessory muscle use. Clear to auscultation. Breath sounds equal bilaterally. GASTROINTESTINAL: Abdomen soft, no tenderness, nondistended. MUSCULOSKELETAL: Extremities without clubbing, cyanosis, or edema. No obvious deformities. NEUROLOGICAL: Awake and alert. No obvious cranial nerve deficits. Motor grossly within normal limits. Five out of 5 muscle strength in the arms and legs. Normal speech. PSYCHIATRIC: Appropriate mood and affect; insight and judgment normal. Results Pending studies at discharge: Pending at discharge 12/03/18 14:58 Surgical [PTH] Routine Impressions ITS Impressions Bile Acid Absorption NM 12/03/18 00:00 CONCLUSION: 1. Prompt visualization of gallbladder and normal gallbladder ejection fraction. 2. Minimal biliary enteric reflux which occurs prior to CCK aspiration. Discharge Plan Discharge Disposition Patient Disposition: 01 Discharge Home Discharge Condition Condition: Stable Discharge Order Discharge Orders: Discharge Order (Routine); Ordered 12/04/18 Ordered By: Sheyla Smith Discharge Details Anticipated Discharge Date: 12/04/18 Discharge Comment: DC when arrangements are done Physicians Team Primary Care Provider: Primary Care Nathalie Mcnulty Attending Provider: Sheyla Smith Other Providers: Douglas Shelby ; Emmett Ceja V ; Sheldon Araiza Rxs /Orders / Referrals /Forms Prescriptions: New pantoprazole 40 mg tablet,delayed release (DR/EC) 40 mg PO DAILY 28 Days Qty: 28 RF: 0 No Action No Known Home Medications RF: 0 Referrals: Primary Care Nathalie Mcnulty [Primary Care Provider] - See Instructions ( Please call the physician's office to book the appointment to be seen within [2-3 days ].) Discharge Instructions Patient Printed Instructions: Laparoscopic Cholecystectomy (DC) Status ED Status: Admitted Observation Patient
--- NOTE | 2018-12-04 13:23 | P.PNGI ---
Subjective Interval history: Patient laying in bed comfortably No complaints No nausea vomiting no abdominal pain Patient stated he is ready to go home Physical Exam Vital signs: Vital Signs 12/03/18 13:25 12/03/18 16:17 12/03/18 19:55 Temperature 97.6 F 96.5 F L 98.2 F Pulse Rate 60 61 64 Respiratory Rate 20 18 18 Blood Pressure 92/51 L 109/63 125/57 L Pulse Oximetry 97 100 97 12/03/18 23:54 12/04/18 03:34 12/04/18 07:57 Temperature 98.1 F 98.3 F 98.1 F Pulse Rate 50 L 58 L 60 Respiratory Rate 16 20 18 Blood Pressure 103/57 L 116/57 L 93/57 L Pulse Oximetry 97 97 98 12/04/18 11:19 Temperature 98.4 F Pulse Rate 55 L Respiratory Rate 18 Blood Pressure 109/59 L Pulse Oximetry 99 Intake & Output 12/03/18 12/04/18 12/04/18 18:59 06:59 18:59 Intake Total 1050 / 1050 1100 / 1100 500 / 500 Balance 1050 / 1050 1100 / 1100 500 / 500 Intake: IV 950 / 950 1100 / 1100 500 / 500 NS Inj 1,000 ML @ 100 mls/hr IV 800 / 800 1000 / 1000 450 / 450 .CONT .Q10H JW Rx#:[id number] Zosyn 3.375 GM Premix 3.375 gm 100 / 100 100 / 100 50 / 50 In 50 ml @ 100 mls/hr IV.SIG Q6H JW Rx#:[id number] Anesthesia Amount 100 / 100 Other: # Voids 1 # Bowel Movements 1 - Constitutional no acute distress - Routine HEENT Exam Head: Present: normocephalic - Routine Neck Exam Present: supple - Routine Respiratory Exam Present: CTA bilaterally - Routine Cardiovascular Exam Present: RRR, S1, S2 - Routine Abdominal Exam Present: soft, normoactive bowel sounds. Absent: tenderness, distended - Routine Extremities Exam Present: pulses intact, normal capillary refill - Routine Skin Exam Present: intact - Routine Neurological Exam Present: alert, oriented X3 Results - Labs CBC & Chem 7: 12/03/18 05:54 12/03/18 05:54 Assessment and Plan (1) Epigastric abdominal pain Status: Acute Code(s): R10.13 - Epigastric pain - Plan Patient is a pleasant 38-year-old male with past medical history significant for hydronephrosis and right-sided kidney surgery. Patient denies any additional surgical history or medical problems. Patient presented to [facility] emergency room with complaints of epigastric abdominal pain. He reports that this pain is sometimes sharp in nature as well as dull in nature. He rates his pain at a 10 out of 10 at this time. Patient reports pain radiates from epigastrium to right upper quadrant. States pain has been intermittent over the last 20 years, mostly occurring after eating fatty foods with mayonnaise or cheese. Over the last year or 2, patient states the pain has become more frequent regardless of meal type. Patient denies any past history of having had an EGD or colonoscopy. Patient does endorse occasional heartburn for which he no longer takes antacids due to the ineffectiveness. Patient states most common trigger for symptoms tomato based products. Patient denies any difficulty swallowing, odynophagia or unintentional weight loss. He does endorse that discomfort is usually relieved by "belching". Patient denies use of tobacco products but does endorse marijuana use daily. States he drinks 4 beers/alcoholic drinks a week. Patient denies any present use of NSAIDs. States that he stopped taking naproxen 1-2 years ago for chronic lower back pain. Patient does endorse having daily bowel movements without diarrhea or constipation or any noted bleeding. CT abdomen and pelvis reveal left renal mass as well as findings suggestive of acute cholecystitis. Patient has been evaluated by the general surgical service and our service has been asked to evaluate patient further for abdominal pain. Abdominal pain Epigastric pain Patient presents with complaint of epigastric pain radiates to right upper quadrant for "20 years". Patient rates pain at 10 out of 10 at this time and states pain is constant. Denies any history of having had EGD in the past. Denies use of NSAIDs. Endorses marijuana use daily as well as EtOH use. Patient endorses abdominal pain present regardless of male type. Reports nausea without emesis, denies fever or chills. -WBC 12.0 hemoglobin 14.1 hematocrit 41.5 total bilirubin 0.5 AST 67 ALT 46 alk phos 80 lipase 115 -12/02/2018 CT abdomen and pelvis reveal the following: Findings consistent with acute cholecystitis Left renal mass will need to be followed. Pre and postcontrast renal MRI suggested on an elective basis. 12/04/2018 Assessment Status post EGD 12/03/2018 which revealed that there was LA Class A esophagitis noted. There was mild antral gastropathy noted . Normal duodenal mucosa in the entire duodenum. Retroflexed views revealed no abnormalities. Hemoglobin 13 hematocrit 38.2 platelet 168 Plan -Renal diet -Continue PPI -Antiemetics and analgesics as per attending -Supportive care -Patient is stable for GI standpoint -Patient agrees to follow-up as an outpatient to discuss biopsy result -GI will sign off reconsult as needed This patient has been seen by myself and Dr. Vila and this note is written on his behalf - Attending Attestation Dr. Vila
== END 2018-12-04 14:15 | disposition home or self-care (01) ==
LOC: NEPFCDU 03:28 → NEDDLT 03:28
PROVIDERS: ADMIT Hospitalist; ATTEND Hospitalist
PROC: PANENDO (2018-12-03 12:46)
DX: Z87.891 Personal history of nicotine dependence; N13.2 Hydronephrosis with renal and ureteral calculous obstruction; K81.0 Acute cholecystitis; N28.89 Other specified disorders of kidney and ureter; K20.9 Esophagitis, unspecified; F12.10 Cannabis abuse, uncomplicated; K31.9 Disease of stomach and duodenum, unspecified
CPT/HCPCS: 74177; 78226; 80048; 80053; 81001; 83690; 85025; 88305; 88312; 90765; 96361; 96365; 96366; 96375; 96376; 99285; A9513; A9537; C1097; C9113; G0378; J0696; J2543; J2704; J2805; J7030; Q9967